=== PATIENT | female | born 1950 | race Caucasian/White ===

== ENCOUNTER → 2021-09-07 | Outpatient (CLI) | payer MEDICARE, BC ==
[~2021-09-07] MED LIST: ATIVAN1 MG PO; CELEXA40 MG PO; CLARITIN10 MG PO; ELIQUIS 2.5 MG2.5 MG PO; ESTRACE CREAM VG; GAVISCON PO; HYDROXYZINE HCL25 MG PO; IMODIUM CAP 2 MG2 MG PO; KENALOG CREAM 015 GM TD; KETOCONAZOLE120 ML TD; PEPCID40 MG PO; SYNTHROID100 MCG PO; TIMOPTIC 0.5% OP5 ML EYERT; VANCOMYCIN IV750 MG IV; ZOFRAN4 MG PO; [UNRECOGNIZED DRUG - REMARK] TOP
== END ==
LOC: RAD 11:37
DX: R05.9 Cough, unspecified (principal); R91.8 Other nonspecific abnormal finding of lung field
CPT/HCPCS: 71046

== ENCOUNTER → 2021-09-20 | Outpatient (CLI) | payer MEDICARE, BC | LOC: CT 06:52 | DX: R91.8 Other nonspecific abnormal finding of lung field (principal); E27.9 Disorder of adrenal gland, unspecified | CPT/HCPCS: 71270; Q9967 ==

== ENCOUNTER → 2021-10-12 | Outpatient (CLI) | payer MEDICARE, BC | LOC: CT 11:47 | DX: E27.9 Disorder of adrenal gland, unspecified (principal); D35.02 Benign neoplasm of left adrenal gland; D35.01 Benign neoplasm of right adrenal gland | CPT/HCPCS: 36415; 74170; 82565; 84520; Q9967 ==

== ENCOUNTER → 2021-11-01 | Outpatient (CLI) | payer MEDICARE, BC | LOC: KOH-I 10-31 15:30 | DX: R91.8 Other nonspecific abnormal finding of lung field (principal) | CPT/HCPCS: 71250 ==